=== PATIENT | female | born 1960 | race American Indian/Alaskan Native ===

== ENCOUNTER 2021-03-12 13:59 | Emergency (ER) | payer SELFPAY ==
--- NOTE | 2021-03-12 16:54 | Event Note ---
ED Screening Note Date of service: 03/12/21 Time: 16:53 ED Screening Note: 60-year-old female presents to the ER today with complaints of not feeling well for the past couple days. Patient states that she has been having a headache, decreased appetite, nausea, productive cough, fever at home of up to 105, and dizziness when she stands up. She denies any chest pain, shortness of breath, abdominal pain, vomiting or diarrhea or UTI symptoms. She denies any apparent ill contacts or known COVID-19 contacts. She states that she did get a Covid test this morning and results are pending. This initial assessment/diagnostic orders/clinical plan/treatment(s) is/are subject to change based on patients health status, clinical progression and re- assessment by fellow clinical providers in the ED. Further treatment and workup at subsequent clinical providers discretion. Patient/guardian urged not to elope from the ED as their condition may be serious if not clinically assessed and managed. Initial orders include: Labs including blood cultures, lactic acid chest x-ray and urine
[2021-03-12] MEDS: ACETAMINOPHEN 500 MG TAB PO ONE (16:57)
[2021-03-12 17:03] LABS: Basophils % (Auto) 0.5 % (0.0-1.8); Hematocrit 42.8 % (30.3-42.9); Hemoglobin 14.4 gm/dl (10.1-14.3); Lymphocytes # (Auto) 1.3 K/mm3 (1.2-5.4); Lymphocytes % (Auto) 18.5 % (13.4-35.0); Mean Corpuscular HGB Conc 34 % (30-34); Mean Corpuscular Volume 88 fl (79-97); Monocytes # (Auto) 0.6 K/mm3 (0.0-0.8); Monocytes % (Auto) 7.9 % (0.0-7.3); Platelet Count 180 K/mm3 (140-440); Red Blood Count 4.89 M/mm3 (3.65-5.03); Red Cell Distribution Width 13.2 % (13.2-15.2)
--- NOTE | 2021-03-12 17:15 | XRay Report ---
CHEST PA AND LATERAL VIEWS INDICATION: fever, cough. COMPARISON: None. FINDINGS: Support devices: None. Heart: Within normal limits. Lungs/Pleura: There is patchy peripheral airspace disease in the left mid to lower lung. There is als o mild airspace disease in the right lower lung. No pleural abnormality. IMPRESSION: 1. Mild patchy bilateral airspace disease greater on the left is concerning for atypical/viral pneumo elizabeth. Signer Name: Nathaniel Le MD Signed: 03/12/2021 5:11 PM Workstation Name: [id number]
[2021-03-12 17:19] LABS: Alanine Aminotransferase 68 units/L (7-56); Albumin 4.3 g/dL (3.9-5); BUN/Creatinine Ratio 24; Blood Urea Nitrogen 22 mg/dL (7-17); Calcium 9.4 mg/dL (8.4-10.2); Hemolysis Index 4
[2021-03-12 19:54] VITALS: BP 122/77
[2021-03-12] MEDS ORDERED: dexAMETHasone 20 MG/5 ML VIAL IM ONE (22:21)
--- NOTE | 2021-03-12 22:25 | Emergency Department Report ---
- General Chief Complaint: Fever Stated Complaint: HEADACHE/CAN'T BREATH/COUGHING MUCUS Time Seen by Provider: 03/12/21 21:56 Source: patient Mode of arrival: Ambulatory Limitations: No Limitations - History of Present Illness Initial Comments: Patient is a 60-year-old F [place] female with past medical history of hypertension who is presenting with 2 to 3 days of cough and congestion. Patient states the cough is productive of green sputum. Minimal shortness of breath with exertion. She feels very congested and has chills. Body aches are present and has had some mild nausea but no vomiting. Patient has a decrease in appetite and taste and smell. Patient was not vaccinated for COVID-19 and does not have a good reason why she did not get vaccinated. Patient took a COVID-19 test earlier today and does not have the results as of yet. Body aches are a 8 out of 10 in severity. - Related Data Previous Rx's Medication Instructions Recorded Last Taken Type Albuterol Mdi (or & Nicu Only) 2 puff IH QID PRN #1 inhalation 03/12/21 Unknown Rx [ProAir HFA Inhaler] Azithromycin [Zithromax Z-YELENA] 250 mg PO DAILY #6 tablet 03/12/21 Unknown Rx Benzonatate [Tessalon Perles] 100 mg PO Q8HR #10 capsule 03/12/21 Unknown Rx HYDROcodone/APAP 5-325 [[place] 1 each PO Q6HR PRN #14 tablet 03/12/21 Unknown Rx 5/325] predniSONE [Deltasone] 50 mg PO QDAY #5 tab 03/12/21 Unknown Rx Allergies Allergy/AdvReac Type Severity Reaction Status Date / Time No Known Allergies Allergy Unverified 03/12/21 16:52 ED Review of Systems ROS: Stated complaint: HEADACHE/CAN'T BREATH/COUGHING MUCUS Other details as noted in HPI Comment: All other systems reviewed and negative ED Past Medical Hx - Past Medical History Previous Medical History?: Yes Hx Hypertension: Yes - Surgical History Past Surgical History?: No Additional Surgical History: denies - Medications Home Medications: Home Medications Medication Instructions Recorded Confirmed Last Taken Type Albuterol Mdi (or & Nicu Only) 2 puff IH QID PRN #1 inhalation 03/12/21 Unknown Rx [ProAir HFA Inhaler] Azithromycin [Zithromax Z-YELENA] 250 mg PO DAILY #6 tablet 03/12/21 Unknown Rx Benzonatate [Tessalon Perles] 100 mg PO Q8HR #10 capsule 03/12/21 Unknown Rx HYDROcodone/APAP 5-325 [[place] 1 each PO Q6HR PRN #14 tablet 03/12/21 Unknown Rx 5/325] predniSONE [Deltasone] 50 mg PO QDAY #5 tab 03/12/21 Unknown Rx ED Physical Exam - General Limitations: No Limitations General appearance: alert, in no apparent distress - Head Head exam: Present: atraumatic, normocephalic - Eye Eye exam: Present: normal appearance - ENT ENT exam: Present: mucous membranes moist - Neck Neck exam: Present: normal inspection - Respiratory Respiratory exam: Present: normal lung sounds bilaterally, rhonchi (mild). Absent: respiratory distress, wheezes, rales - Cardiovascular Cardiovascular Exam: Present: regular rate, normal rhythm, normal heart sounds. Absent: systolic murmur, diastolic murmur, rubs, gallop - GI/Abdominal GI/Abdominal exam: Present: soft, normal bowel sounds. Absent: distended, tenderness, guarding, rebound - Extremities Exam Extremities exam: Present: normal inspection - Back Exam Back exam: Present: normal inspection - Neurological Exam Neurological exam: Present: alert, oriented X3 - Psychiatric Psychiatric exam: Present: normal affect, normal mood - Skin Skin exam: Present: warm, dry, intact, normal color. Absent: rash ED Course Vital Signs 03/12/21 03/12/21 03/12/21 16:24 16:34 19:51 Temperature 103.0 F H 103.0 F H 98.8 F Pulse Rate 108 H 105 H 96 H Respiratory 18 18 16 Rate Blood Pressure 144/76 Blood Pressure 144/76 [Right] O2 Sat by Pulse 99 99 94 Oximetry 03/12/21 19:53 Temperature Pulse Rate Respiratory Rate Blood Pressure Blood Pressure 122/77 [Right] O2 Sat by Pulse Oximetry ED Medical Decision Making - Lab Data Result diagrams: 03/12/21 16:47 03/12/21 16:47 Lab Results 03/12/21 03/12/21 03/12/21 Range/Units 16:47 16:47 16:47 WBC 7.2 (4.5-11.0) K/mm3 RBC 4.89 (3.65-5.03) M/mm3 Hgb 14.4 H (10.1-14.3) gm/dl Hct 42.8 (30.3-42.9) % MCV 88 (79-97) fl MCH 29 (28-32) pg MCHC 34 (30-34) % RDW 13.2 (13.2-15.2) % Plt Count 180 (140-440) K/mm3 Lymph % (Auto) 18.5 (13.4-35.0) % [place] % (Auto) 7.9 H (0.0-7.3) % Eos % (Auto) 0.0 (0.0-4.3) % Baso % (Auto) 0.5 (0.0-1.8) % Lymph # (Auto) 1.3 (1.2-5.4) K/mm3 [place] # (Auto) 0.6 (0.0-0.8) K/mm3 Eos # (Auto) 0.0 (0.0-0.4) K/mm3 Baso # (Auto) 0.0 (0.0-0.1) K/mm3 Seg Neutrophils % 73.1 H (40.0-70.0) % Seg Neutrophils # 5.3 (1.8-7.7) K/mm3 Sodium 135 L (137-145) mmol/L Potassium 4.0 (3.6-5.0) mmol/L Chloride 98.2 (98-107) mmol/L Carbon Dioxide 23 (22-30) mmol/L Anion Gap 18 mmol/L BUN 22 H (7-17) mg/dL Creatinine 0.9 (0.6-1.2) mg/dL Estimated GFR > 60 ml/min BUN/Creatinine Ratio 24 % Glucose 124 H (65-100) mg/dL Lactic Acid 1.10 (0.7-2.0) mmol/L Calcium 9.4 (8.4-10.2) mg/dL Total Bilirubin 0.30 (0.1-1.2) mg/dL AST 113 H (5-40) units/L ALT 68 H (7-56) units/L Alkaline Phosphatase 75 (35-129) units/L Total Protein 8.5 H (6.3-8.2) g/dL Albumin 4.3 (3.9-5) g/dL Albumin/Globulin Ratio 1.0 % - Radiology Data [facility] [address] [place] [address] XRay Report Signed Patient: JENNIFER WALDEN MR#: [id number] : 1960 Acct:[id number] Age/Sex: 60 / F ADM Date: 03/12/21 Loc: ED Attending Dr: Ordering Physician: CÉSAR BRITT Date of Service: 03/12/21 Procedure(s): XR chest routine 2V Accession Number(s): [id number] cc: CÉSAR BRITT Fluoro Time In Minutes: CHEST PA AND LATERAL VIEWS INDICATION: fever, cough. COMPARISON: None. FINDINGS: Support devices: None. Heart: Within normal limits. Lungs/Pleura: There is patchy peripheral airspace disease in the left mid to lower lung. There is also mild airspace disease in the right lower lung. No pleural abnormality. IMPRESSION: 1. Mild patchy bilateral airspace disease greater on the left is concerning for atypical/viral pneumonia. Signer Name: Nathaniel Le MD Signed: 03/12/2021 5:11 PM Workstation Name: [id number] Transcribed By: SW Dictated By: Nathaniel Le MD Electronically Authenticated By: Nathaniel Le MD Signed Date/Time: 03/12/21 1711 - Medical Decision Making Patient is a 60-year-old F [place] female who is diabetic who is presenting with probable COVID-19. Chest x-ray consistent with atypical pneumonia. O2 saturations have not dropped below 94%. Patient is stable for discharge. Patient given medication for symptomatic relief. Critical care attestation.: If time is entered above; I have spent that time in minutes in the direct care of this critically ill patient, excluding procedure time. ED Disposition Clinical Impression: Suspected COVID-19 virus infection, Acute bronchitis Disposition: HOME / SELF CARE / HOMELESS Is pt being admited?: No Does the pt Need Aspirin: No Condition: Stable Instructions: Acute Bronchitis (ED), Acute Bronchitis, Adult, COVID-19 Mohan quently Asked Questions, COVID-19, COVID-19: How to Protect Yourself and Others - [facility] Additional Instructions: Please buy a home pulse oximeter to monitor your oxygen levels. Please return if your oxygen level is consistently less than 90% while at rest. These can be bought for approximately $20-$30 at any local pharmacy such as [facility] or [facility] Referrals: PRIMARY CARE, [Primary Care Provider] - 3-5 Days Time of Disposition: 22:24
== END 2021-03-12 23:01 | disposition home or self-care (01) ==
LOC: ED 13:59
DX: B34.9 Viral infection, unspecified (principal); J20.9 Acute bronchitis, unspecified; Z20.822 Contact with and (suspected) exposure to COVID-19; I10 Essential (primary) hypertension; Z79.899 Other long term (current) drug therapy
CPT/HCPCS: 36415; 71046; 80053; 82140; 85025; 87040; 99284